=== PATIENT | female | born 1990 | race Caucasian/White ===

== ENCOUNTER 2020-10-09 13:48 | Outpatient (CLI) | payer OTHER ==
[~2020-10-09 13:48] MED LIST: BACTRIM DS TAB1 EACH PO; FERROUS SULFAT325 MG PO; KEFLEX CAP 500500 MG PO; LORTAB 5-325 M1 EACH PO; OMNICEF 300 MG300 MG PO; SERTRALINE HCL50 MG PO
== END 2020-10-09 15:23 | disposition home or self-care (01) ==
LOC: GENOP 13:48
PROVIDERS: Obstetrics & Gynecology
DX: O62.9 Abnormality of forces of labor, unspecified (principal)
CPT/HCPCS: 59025; 80307; 81001

== ENCOUNTER → 2020-10-19 | Outpatient (CLI) | payer OTHER ==
[~2020-10-19] MED LIST changes: +DOCUSATE SODIU100 MG PO; +IBUPROFEN600 MG PO
== END ==
LOC: GENOP 19:39
DX: O62.9 Abnormality of forces of labor, unspecified (principal); Z3A.38 38 weeks gestation of pregnancy
CPT/HCPCS: 81001; G0463

== ENCOUNTER 2020-10-23 09:57 | Inpatient (IN) | payer OTHER ==
[~2020-10-23] VITALS: Ht 162.6 cm; Wt 71.2 kg
[~2020-10-23 09:57] MED LIST changes: -DOCUSATE SODIU100 MG PO; -IBUPROFEN600 MG PO
[2020-10-23 12:15] LABS: HEMOGLOBIN 10.5 gm/dl (12.3-15.3); RED BLOOD COUNT 3.6 M/UL (4.00-5.10); WHITE BLOOD COUNT 14.4 K/UL (4.5-11.0)
[2020-10-24 03:08] LABS: HEMOGLOBIN 11.9 gm/dl (12.3-15.3)
[2020-10-24] MEDS ORDERED: DOCUSATE SODIU100 MG PO (10:31)
[2020-10-24] MEDS ORDERED: IBUPROFEN600 MG PO (10:31)
[2020-10-29 22:11] LABS: AMPHETAMINES, URINE Negative ng/mL (Cutoff=1000); BARBITURATE Negative ng/mL (Cutoff=200); BENZODIAZEPINES Negative ng/mL (Cutoff=200); CANNABINOIDS Negative ng/mL (Cutoff=20); COCAINE (METABOLITE) Negative ng/mL (Cutoff=300); CREATININE 79.1 mg/dL (20.0-300.0); MEPERIDINE Negative ng/mL (Cutoff=200); METHADONE Negative ng/mL (Cutoff=300); OPIATES Negative ng/mL (Cutoff=300); OXYCODONE Positive (.); OXYCODONE (GC/MS) 1967 ng/mL (Cutoff=300); OXYCODONE/OXYMORPH Positive (Cutoff=300); OXYMORPHONE Positive (.); OXYMORPHONE (GC/MS) 1238 ng/mL (Cutoff=300); PHENCYCLIDINE Negative ng/mL (Cutoff=25); PROPOXYPHENE Negative ng/mL (Cutoff=300)
== END 2020-10-24 11:05 | disposition home or self-care (01) | DRG 806 ==
LOC: GENOP 09:57 → OB 12:00
PROVIDERS: Obstetrics & Gynecology; ADMIT Obstetrics & Gynecology
PROC: 10E0XZZ Delivery of Products of Conception, External Approach (ICD-10-PCS; principal; 2020-10-23)
PROC: 10907ZC Drainage of Amniotic Fluid, Therapeutic from Products of Conception, Via Natural or Artificial Opening (ICD-10-PCS; 2020-10-23)
PROC: 3E0234Z Introduction of Serum, Toxoid and Vaccine into Muscle, Percutaneous Approach (ICD-10-PCS; 2020-10-23)
DX: O99.324 Drug use complicating childbirth (principal); O98.42 Viral hepatitis complicating childbirth; Z37.0 Single live birth; F11.10 Opioid abuse, uncomplicated; Z20.822 Contact with and (suspected) exposure to COVID-19; B19.20 Unspecified viral hepatitis C without hepatic coma; Z3A.39 39 weeks gestation of pregnancy; Z23 Encounter for immunization; O99.334 Smoking (tobacco) complicating childbirth; F17.210 Nicotine dependence, cigarettes, uncomplicated; F12.10 Cannabis abuse, uncomplicated; O99.344 Other mental disorders complicating childbirth; F32.9 Major depressive disorder, single episode, unspecified
CPT/HCPCS: 36415; 51702; 80307; 81001; 82800; 85014; 85018; 85025; 90471; 90715; J2405; J2590; J2795; J7120; U0003

== ENCOUNTER 2021-05-02 06:56 | Emergency (ER) | payer OTHER ==
[~2021-05-02 06:56] MED LIST changes: +DOCUSATE SODIU100 MG PO; +IBUPROFEN600 MG PO
[2021-05-02 07:58] LABS: HEMOGLOBIN 12.4 gm/dl (12.3-15.3); RED BLOOD COUNT 4.27 M/UL (4.00-5.10); WHITE BLOOD COUNT 12.3 K/UL (4.5-11.0)
[2021-05-02 08:07] LABS: BUN/CREATININE RATIO 10 (0-10)
[2021-05-02] MEDS ORDERED: OMNICEF 300 MG300 MG PO (10:24)
== END 2021-05-02 10:45 | disposition home or self-care (01) ==
LOC: ER1 06:56
PROVIDERS: Physician Assistant
DX: O23.42 Unspecified infection of urinary tract in pregnancy, second trimester (principal); O99.332 Smoking (tobacco) complicating pregnancy, second trimester; F17.200 Nicotine dependence, unspecified, uncomplicated; Z3A.16 16 weeks gestation of pregnancy; Z86.19 Personal history of other infectious and parasitic diseases
CPT/HCPCS: 76775; 76817; 80053; 81001; 84702; 84703; 85025; 87077; 87086; 87186; 96374; 96375; 99284; J0696; J1885; J2405; J7030